=== PATIENT | male | born 1955 | race Caucasian/White ===

== ENCOUNTER 2018-01-25 08:02 | Day surgery (SDC) | payer MEDICARE, OTHER ==
[~2018-01-25] VITALS: Ht 182.9 cm; Wt 75.1 kg
[2018-01-25] MEDS ORDERED: LACTATED RINGER'S 1000 ML INJ 1,000 ML IV ONE (08:03)
[2018-01-25] MEDS ORDERED: PHENYLEPH/NS 1000 MCG/10 ML SYR IV ONE (08:03)
[2018-01-25] MEDS ORDERED: LIDOCAINE HCL 1% PF 5 ML SYRINGE OTHER ONE (08:03)
[2018-01-25] MEDS ORDERED: PROPOFOL 200 MG/20 ML AMP IV ONE (08:03)
[2018-01-25] MEDS ORDERED: hydrALAZINE HCL 20 MG/ML VIAL IV ONE (08:03)
[2018-01-25] MEDS ORDERED: ePHEDrine/NS 25 MG/5 ML SYRINGE IV ONE (08:03)
[2018-01-25] MEDS ORDERED: MSIR30 PO (09:12)
[2018-01-25] MEDS ORDERED: MS C15TA7 PO (09:12)
[2018-01-25] MEDS ORDERED: TIZA6CAP3 PO (09:12)
[2018-01-25] MEDS ORDERED: SIMV5TAB3 PO (09:12)
[2018-01-25] MEDS ORDERED: GABA600T PO (09:12)
[2018-01-25] MEDS ORDERED: AMIT50TA3 PO (09:12)
[2018-01-25] MEDS ORDERED: OXAP600 PO (09:12)
[2018-01-25] MEDS ORDERED: SODIUM CHLORID 0.9% 500 ML IV PRN (09:15)
[2018-01-25] MEDS ORDERED: CHLORHEXIDINE GLUCONATE 2 % 1 PACK (2 CLOTHS) TOPICAL PRN (09:15)
[2018-01-25] MEDS ORDERED: POVIDONE IODINE 5% (ANTISEPSIS KIT) 4 APPLICATIONS EACH NARE PRN (09:15)
[2018-01-25] MEDS ORDERED: VANCOMYCIN 1000 MG/NS 250 ML (for <70 kg) IV SCH ×2 (09:15)
[2018-01-25] MEDS ORDERED: CHLORHEXIDINE GLUCONATE 4% SOLN 120 ML BTL TOPICAL SCH (09:15)
[2018-01-25] MEDS ORDERED: METOPROLOL TARTRATE 25 MG TAB PO PRN (09:15)
[2018-01-25] MEDS ORDERED: LACTATED RINGER'S 1000 ML IV PRN (09:15)
[2018-01-25] MEDS ORDERED: ceFAZolin 2 GM PREMIX 50 ML IV SCH (09:15)
[2018-01-25] MEDS ORDERED: VANCOMYCIN 1 GM/200 ML INJ 200 ML IV SCH (09:15)
[2018-01-25] MEDS ORDERED: BUPIVACAINE/EPINEPHRINE 0.5% PF 10 ML VIAL ONE (13:50)
[2018-01-25] MEDS ORDERED: GENTAMICIN SULFATE 80 MG/2 ML VIAL ONE (13:50)
[2018-01-25] MEDS ORDERED: VANCOMYCIN HCL 1000 MG VIAL ONE ×2 (16:14→16:16)
[2018-01-25] MEDS ORDERED: TOBRAMYCIN 1200 MG VIAL (for ortho/sterile core) OTHER ONE (16:16)
[2018-01-25] MEDS ORDERED: BACITRACIN TOP OINT 15 GM TUBE ONE (17:16)
[2018-01-25] MEDS ORDERED: ACETAMINOPHEN/HYDROcodone 325 MG/7.5 MG TAB PO PRN (17:30)
[2018-01-25] MEDS ORDERED: MORPHINE SULFATE 4 MG/ML INJ IV PUSH PRN (17:30)
--- NOTE | 2018-01-25 17:34 | PD.OP ---
cc: Frankie Hough MD Operative Report Date of Surgery: January 25, 2018 Preoperative Diagnosis: Comminuted right distal radius fracture with secondary displacement, open wound left knee Postoperative Diagnosis: Procedure: External fixation of right wrist, revision open reduction internal fixation of right distal radius fracture, irrigation and debridement with closure of left knee laceration Anesthesia: General Surgeon: Frankie Hough Casting Finisher(s): Jovanni Ruiz PA-C The surgical procedure was assisted by my physician administrative assistant data entry. My P.A. presence was necessary throughout this case for the manipulation and positioning of the surgical extremity. My P.A. was assisting me throughout the duration of this procedure. The skill set of a physician administrative assistant data entry was medically necessary to complete this procedure. During the surgical case the assistant professor surgical technology was working at the back table and the physician administrative assistant data entry was directly assisting me. Operation and Findings: Implants used: Synthes external fixation, Synthes volar distal radius plate Plan of activity: Nonweightbearing Details of procedure: Patient was seen and evaluated preoperatively and found to have secondary displacement of complex comminuted right distal radius fracture. The fracture had displaced and impacted around the previously placed plate and screws. Informed consent was obtained after detailed discussion of risk and benefits including bleeding, infection, injury to arteries, nerves, and blood vessels, weakness and numbness of hand, and tendon rupture. Informed consent was obtained. Patient received IV antibiotics prior to incision. Timeout procedure was performed. Operative extremity was prepped with alcohol followed by Hibiclens and draped usual sterile fashion. Procedure began with placement of external fixation. 2 small incisions were made over the radial shaft and 2 incisions were made over the second metacarpal. Fluoroscopy confirmed appropriate pin placement. Pin sites were predrilled. Synthes FRANZ-coated pins were placed. An external fixator construct was created. Clamps were attached to the bars. Gentle distraction was applied across the wrist joint. External fixator was tightened up to hold reduction. Next attention was turned towards removal of the plate. A standard volar approach to the distal radius was utilized. A 3 inch incision was made over the FCR tendon through the previous incision. Tendon sheath was opened. Pronator quadratus was elevated up. The volar plate was now visualized. At this point attention was turned towards hardware removal. The screws were loosened with a screwdriver. All screws were now removed. The plate was now elevated and removed. At this point the fracture was visualized. The fracture did have comminution and intra-articular extension. Traction was applied. The articular surface was reduced and elevated. There was impaction of the articular surface. Cancellus bone chips were packed underneath the articular surface for additional support.. Fracture fragments were manipulated to achieve excellent reduction. The external fixator was adjusted to help hold reduction. K wires were used to hold provisional fixation. Fluoroscopy confirmed appropriate alignment of fracture. A variable angle distal radius plate was selected. Plate was provisionally fixed to bone with K wires. 2.7 and 2.4 cortical screws were used to compress plate to bone. Fluoroscopy confirmed appropriate alignment of fracture with well-placed hardware. Multiple 2.4 locking screws were now placed distally. Screws were predrilled and measured for appropriate length. 2 additional screws were placed into the shaft. K wires were removed. Final fluoroscopy revealed excellent of fracture with well-placed hardware. The wound was thoroughly irrigated with sterile saline. Subcutaneous tissue was closed with 3-0 Vicryl and skin was closed with 3-0 nylon. Sterile dressings were applied with Xeroform, 4 x 4, soft roll, and Jonathon wrap. Next attention was turned towards the left knee. Patient had a complex laceration of the left knee. There is areas of skin necrosis. Skin subcutaneous tissue and fascia were sharply debrided with curettes and rongeurs. A portion of the prepatellar bursa was also excised sharply. All necrotic tissue was removed. Curettes were used to debride soft tissue and bone. Wound was now thoroughly irrigated. The wound appeared to be clean at this time. At this point the skin edges were reapproximated with 3-0 PDS. Skin was closed with 3-0 nylon. Sterile dressings were applied. Patient was awakened and transferred to recovery room in stable condition Frankie Hough MD January 25, 2018 17:34
[2018-01-25] MEDS ORDERED: MIDAZOLAM HCL 2 MG/2 ML VIAL ONE (17:41)
[2018-01-25] MEDS ORDERED: *morphine SULFATE 10 MG/ML PERIprocedure ONLY ONE (17:44)
[2018-01-25] MEDS ORDERED: DO NOT ADM ANY ANTICOAGULANT DRUGS PRN (17:53)
--- NOTE | 2018-01-25 17:58 | EKG ---
Date Performed: 01/25/2018 Time Performed: 09:06:24 PTAGE: 62 years EKG: Sinus rhythm MODERATE INTRAVENTRICULAR CONDUCTION DELAY MINIMAL ST DEPRESSION BORDERLINE ECG Since the PREVIOUS TRACING , no significant change noted PREVIOUS TRACIN10/10/1994 09.33 DOCTOR: Ira Mckeon Interpretating Date/Time 01/25/2018 17:56:22
[2018-01-25] MEDS ORDERED: *morphine SULFATE 8 MG/ML PERIprocedure ONLY ONE (18:07)
[2018-01-25] MEDS ORDERED: *HYDROmorphone PF 0.5 MG/0.5 ML PERIprocedure ONLY ONE (18:43)
[2018-01-25 19:10] VITALS: BP 160/77; PULSE 72; TEMP 97.6; O2SAT 95
[2018-01-25 19:15] VITALS: RESP 16
--- NOTE | 2018-01-25 22:44 | RADRPT ---
EXAM DATE: 01/25/2018 10:25 PM EDT AGE/SEX: 62 years / Male INDICATIONS: ORIF right wrist in operating room. CLINICAL DATA: This is the patient's subsequent encounter. Patient reports that signs and symptoms h ave been present for 1 day and indicates a pain score of Nonresponsive. MEDICAL/SURGICAL HISTORY: Non-responsive. Non-responsive. COMPARISON: No prior [facility] exams available for comparison. FINDINGS: There is plate and screw fixation of the comminuted distal radius fracture with intra-articular exten stefanie. Displaced ulnar styloid fracture again noted. No dislocation. External fixation also present. CONCLUSION: Fixation comminuted distal radius fracture. Positive ulna styloid fracture. Electronically signed by: Carl Sellers MD 01/25/2018 10:42 PM EDT
== END 2018-01-25 19:15 | disposition home or self-care (01) ==
LOC: HSDC 08:02
PROVIDERS: ATTEND Orthopaedic Surgery Orthopaedic Trauma
DX: S52.501A Unspecified fracture of the lower end of right radius, initial encounter for closed fracture (principal); S81.002A Unspecified open wound, left knee, initial encounter; R94.31 Abnormal electrocardiogram [ECG] [EKG]
CPT/HCPCS: 01830; 11043; 20690; 25609; 73100; 76000; 93005; C1713; J0360; J0690; J1170; J1580; J2250; J2270; J2370; J3010; J3370; J7120

== ENCOUNTER 2018-02-22 20:06 | Emergency (ER) | payer OTHER ==
[~2018-02-22] VITALS: Ht 182.9 cm; Wt 77.3 kg
[~2018-02-22 20:06] MED LIST: AMIT50TA3 PO; GABA600T PO; MS C15TA7 PO; MSIR30 PO; OXAP600 PO; SIMV5TAB3 PO; TIZA6CAP3 PO
[2018-02-22 20:36] VITALS: BP 140/74; PULSE 74; RESP 16; TEMP 97.9; O2SAT 96
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
--- NOTE | 2018-02-22 21:50 | RADRPT ---
EXAM DATE: 02/22/2018 9:41 PM EDT AGE/SEX: 62 years / Male INDICATIONS: Apparatus came out of hand. CLINICAL DATA: This is the patient's initial encounter. Patient reports that signs and symptoms have been present for 1 day and indicates a pain score of 0/10. MEDICAL/SURGICAL HISTORY: None. . ORIF right wrist. COMPARISON: No prior exams available for comparison. FINDINGS: There is subacute fracture of the distal radius with external fixator as well as a T plate present. F racture lines remain visible. Ununited ulnar styloid fracture is present. The distal portion of the f ixation at the level of the second metacarpal is no longer within the bone. There is no bony destruct ion or periosteal reaction to suggest osteomyelitis. CONCLUSION: Dislodgment of the distal portion of the external fixator Electronically signed by: Niraj Scott MD 02/22/2018 9:49 PM EDT
--- NOTE | 2018-02-22 21:51 | RADRPT ---
EXAM DATE: 02/22/2018 9:43 PM EDT AGE/SEX: 62 years / Male INDICATIONS: Apparatus came out of hand. CLINICAL DATA: This is the patient's initial encounter. Patient reports that signs and symptoms have been present for 1 day and indicates a pain score of 0/10. MEDICAL/SURGICAL HISTORY: None. . ORIF right wrist. COMPARISON: No prior exams available for comparison. FINDINGS: Examination forearm demonstrates the proximal portion of the external fixation device to be within th e bone. No forearm shaft fractures identified. The distal portion is no longer within the bone. CONCLUSION: Dislodgment of distal portion of external fixator Electronically signed by: Niraj Scott MD 02/22/2018 9:49 PM EDT
== END 2018-02-22 23:31 | disposition left against medical advice (07) ==
LOC: NEPC 20:06
DX: K56.609 Unspecified intestinal obstruction, unspecified as to partial versus complete obstruction (principal); T84.220A Displacement of internal fixation device of bones of hand and fingers, initial encounter
CPT/HCPCS: 73090; 73110; 99283